=== PATIENT | female | born 1970 | race Caucasian/White ===

== ENCOUNTER 2018-01-05 21:08 | Emergency (ER) | payer SELFPAY ==
[2018-01-05] MEDS: HYDROCODONE/APAP (10/325) TAB PO (23:59)
[2018-01-05] MEDS: SILVER SULFADIAZINE 1% 25 GM CR TOP (23:59)
== END 2018-01-06 01:14 | disposition home or self-care (01) ==
LOC: E/R 01-06 01:14
DX: T21.22XA Burn of second degree of abdominal wall, initial encounter (principal); X11.8XXA Contact with other hot tap-water, initial encounter; Y92.9 Unspecified place or not applicable
CPT/HCPCS: 16020; 99283-25